=== PATIENT | female | born 1940 ===

== ENCOUNTER 2017-02-14 15:47 | Observation (INO) | payer MEDICARE, MEDICAID ==
--- NOTE | 2017-02-14 16:05 | ED PDOC ---
HPI:STROKE - Time Time: 16:05 - Historian Historian: Patient, EMS - Onset Onset: Hours (prior to arrival) - Notes: Notes:: Naima Hook is a 77 year old female with a past medical history of hypertension, rheumatoid arthritis, gastritis, gastrointestinal ulcer, and previous CVA brought to the ED via EMS for a possible CVA. EMS states they found the patient sitting in the lobby after she walked herself downstairs. The patient was complaining of headache (unknown time of when headache started) and dizziness. EMS found the patient to have slurred speech and facial droop. The patient states her facial droop and current aphasia is from a previous stroke. PMD: Non CPH Provider NIHSS Stroke Scale - Date/Time Evaluation Performed Date Performed: 02/14/17 Time Performed: 15:50 When Was NIHSS Performed: Code Stroke - How Severe is the Stroke Level of Consciousness: 0=Alert LOC to Questions: 0=Both comments correct LOC to commands: 0=Obeys both correctly Best Gaze: 0=Normal Visual: 0=No visual loss Facial: 1=Minor asymmetry Motor Arm - Left: 0=No drift Motor Arm - Right: 0=No drift Motor Leg - Left: 0=No drift Motor Leg - Right: 0=No drift Limb Ataxia: 1=Present Upper or Lower Sensory: 0=Normal Best Language: 1=Mild to moderate aphasia Dysarthia: 1=Mild to moderate slurring Extinction & Inattention (Neglect): 0=Normal, no object Score: 4 rTPA Inclusion/Exclusion - Refusal of Treatment Patient Refused Treatment: No - Inclusion Criteria for Altepase Patient is 18 years or Older: Yes The Clinical Diagnosis of Ischemic Stroke That is Causing a Potentially Disabling Neurological Deficit: Yes Time of Onset is Well Established to be Less Than 270 Minute Before Treatment Would Begin: No Risk/Benefit Discussed With Patient/Family Member Present: No Past Medical History Reviewed: Historical Data, Nursing Documentation, Vital Signs Vital Signs: Last Vital Signs Temp 97.3 F L 02/14/17 15:48 Pulse 64 02/14/17 15:48 Resp 19 02/14/17 15:48 BP 175/68 H 02/14/17 15:48 Pulse Ox 96 02/14/17 15:48 - Medical History PMH: Gastritis, Gastrointestinal Ulcer, HTN, Rheumatoid Arthritis Denies: Chronic Kidney Disease - Family History Family History: States: No Known Family Hx - Social History Current smoker - smoking cessation education provided: No Ex-Smoker (has not smoked in the last 12 months): Yes Alcohol: None Drugs: Denies - Immunization History Hx Tetanus Toxoid Vaccination: No Hx Influenza Vaccination: No Hx Pneumococcal Vaccination: No - Home Medications Home Medications: Ambulatory Orders Medication Instructions Recorded amLODIPine [Norvasc] 5 mg PO DAILY #30 tab 06/01/15 Docusate [Colace] 100 mg PO DAILY #30 cap 08/03/15 Magnesium Citrate [Citrate of Mag] 300 ml PO ONCE PRN #1 bottle 08/03/15 - Allergies Allergies/Adverse Reactions: Allergies Allergy/AdvReac Type Severity Reaction Status Date / Time No Known Allergies Allergy Verified 08/03/15 17:48 Review of Systems ROS Statement: Except As Marked, All Systems Reviewed And Found Negative Neurological: Positive for: Change in Speech (slurred speech), Headache, Dizziness, Other (facial droop) Physical Exam - Reviewed Nursing Documentation Reviewed: Yes Vital Signs Reviewed: Yes - Physical Exam Appears: Positive for: Non-toxic, No Acute Distress Head Exam: Positive for: ATRAUMATIC, NORMOCEPHALIC Skin: Positive for: Normal Color, Warm, Dry Eye Exam: Positive for: Normal appearance, EOMI ENT: Positive for: Normal ENT Inspection Neck: Positive for: Normal, Painless ROM, Supple Cardiovascular/Chest: Positive for: Regular Rate, Rhythm, Chest Non Tender Respiratory: Positive for: Normal Breath Sounds. Negative for: Respiratory Distress Gastrointestinal/Abdominal: Positive for: Normal Exam, Soft. Negative for: Tenderness Back: Positive for: Normal Inspection Extremity: Positive for: Normal ROM. Negative for: Deformity Neurologic/Psych: Positive for: Alert, Oriented (x2), Aphasia (from previous CVA ), Facial Droop (mild right facial droop), Other (right side: finger to nose - abnormal; heel to diaz - normal) - Laboratory Results Result Diagrams: 02/14/17 15:55 02/14/17 15:55 - ECG O2 Sat by Pulse Oximetry: 96 (RA) Pulse Ox Interpretation: Normal - Physician Consult Information Time Consulting Physican Contacted: 17:38 Physician Contacted: Cedrick Au Outcome Of Conversation: Recommends MRI brain without contrast, Plavix, ASA, statin and beta bethany to keep MAP 90-100. - Critical Care Total Time (In Min): 45 Medical Decision Making Medical Decision Making: Time: 16:05 Impression: Possible CVA Plan: * Type and Screen * ED EKG * CMP * Hemoglobin A1C * Lipid Panel * Troponin I * CBC (with differential) * Partial Thromboplastin Time * Prothrombin Time * ED obtain labs * Glucose, Blood, POC * Nursing Swallow Screen * Vital Signs Q15min * Swallow Evaluation & Treat Routine * CT Head (Code Stroke) * [RAD] Chest Portable * Reevaluation Reassess: --16:07 FINDINGS:CT HEAD WITHOUT CONTRAST. HEMORRHAGE: No intracranial hemorrhage. BRAIN: Diffuse expansion of the ventriculosulcal and cisternal spaces is appreciated with white matter lucency compatible with diffuse cerebral atrophy and chronic microangiopathy. No mass-effect is identified and there is no suspicious extra- axial collection identified. Chronic lacunes are seen the bilateral cerebellar hemispheres as well as posterior the posterior bilateral basal ganglia and left external capsule. VENTRICLES: Unremarkable. No hydrocephalus. CALVARIUM: Unremarkable. PARANASAL SINUSES: Unremarkable as visualized. No significant inflammatory changes. MASTOID AIR CELLS: Unremarkable as visualized. No inflammatory changes. OTHER FINDINGS: None. IMPRESSION: No definite acute intracranial findings by standard CT criteria. Follow-up CT or MRI are available if clinically warranted. Age-related degenerative change identified as well as bilateral chronic lacunes as discussed above, including bilateral basal ganglia, left external capsule and bilateral cerebellar hemispheres. --16:10 FINDINGS: Chest X-ray LUNGS: No active pulmonary disease. PLEURA: No significant pleural effusion identified, no pneumothorax apparent. CARDIOVASCULAR: Mild cardiomegaly. No definite pulmonary vascular derangement. OSSEOUS STRUCTURES: No significant abnormalities. VISUALIZED UPPER ABDOMEN: Normal. OTHER FINDINGS: None. IMPRESSION: Mild cardiomegaly. No definite pulmonary vascular derangement identified. Scribe Attestation: Documented by Sheeba Campos, acting as a scribe for Edda Fontanez MD. Provider Scribe Attestation: All medical record entries made by the Scribe were at my direction and personally dictated by me. I have reviewed the chart and agree that the record accurately reflects my personal performance of the history, physical exam, medical decision making, and the department course for this patient. I have also personally directed, reviewed, and agree with the discharge instructions and disposition. Disposition - Disposition
[2017-02-14 16:06] LABS: BASO # 0.1 K/uL (0.0-0.2); BASO % 0.8 % (0.0-2.0); EOS # 0.2 K/uL (0.0-0.7); EOS % 1.6 % (0.0-4.0); HEMATOCRIT 44.4 % (34.0-47.0); LYMPH # 4.3 K/uL (1.0-4.3); LYMPH % 39.9 % (20.0-40.0); MEAN CELL VOLUME 87.7 fl (81.0-99.0); MEAN CORPUSCULAR HEMOGLOBIN 28.8 pg (27.0-31.0); MEAN CORPUSCULAR HGB CONC 32.9 g/dL (33.0-37.0); MEAN PLATELET VOLUME 7.2 fl (7.2-11.7); MONO # 0.8 K/uL (0.0-0.8); MONO % 7.9 % (0.0-10.0); NEUT # 5.4 K/uL (1.8-7.0); NEUT % 49.8 % (50.0-75.0); NRBC % 0.1 % (0.0-0.0); RED CELL DISTRIBUTION WIDTH 14.3 % (11.5-14.5); WHITE BLOOD COUNT 10.8 K/uL (4.8-10.8)
--- NOTE | 2017-02-14 16:09 | CT ---
PROCEDURE: CT HEAD WITHOUT CONTRAST. HISTORY: code stroke COMPARISON: None available. TECHNIQUE: Axial computed tomography images were obtained through the head/brain without intravenous contrast. Radiation dose: Total exam DLP = 778.97 mGy-cm. This CT exam was performed using one or more of the following dose reduction techniques: Automated exposure control, adjustment of the mA and/or kV according to patient size, and/or use of iterative reconstruction technique. FINDINGS: HEMORRHAGE: No intracranial hemorrhage. BRAIN: Diffuse expansion of the ventriculosulcal and cisternal spaces is appreciated with white matter lucency compatible with diffuse cerebral atrophy and chronic microangiopathy. No mass-effect is identified and there is no suspicious extra-axial collection identified. Chronic lacunes are seen the bilateral cerebellar hemispheres as well as posterior the posterior bilateral basal ganglia and left external capsule. VENTRICLES: Unremarkable. No hydrocephalus. CALVARIUM: Unremarkable. PARANASAL SINUSES: Unremarkable as visualized. No significant inflammatory changes. MASTOID AIR CELLS: Unremarkable as visualized. No inflammatory changes. OTHER FINDINGS: None. IMPRESSION: No definite acute intracranial findings by standard CT criteria. Follow-up CT or MRI are available if clinically warranted. Age-related degenerative change identified as well as bilateral chronic lacunes as discussed above, including bilateral basal ganglia, left external capsule and bilateral cerebellar hemispheres. Findings discussed with Dr. Fontanez 02/14/2017 4:03 p.m..
--- NOTE | 2017-02-14 16:15 | RAD ---
HISTORY: CVA COMPARISON: No prior. FINDINGS: LUNGS: No active pulmonary disease. PLEURA: No significant pleural effusion identified, no pneumothorax apparent. CARDIOVASCULAR: Mild cardiomegaly. No definite pulmonary vascular derangement. OSSEOUS STRUCTURES: No significant abnormalities. VISUALIZED UPPER ABDOMEN: Normal. OTHER FINDINGS: None. IMPRESSION: Mild cardiomegaly. No definite pulmonary vascular derangement identified.
[2017-02-14 16:17] LABS: ALB/GLOB RATIO 1.2 (1.0-2.1); ALKALINE PHOSPHATASE 79 U/L (38-126); ALT/SGPT 35 U/L (9-52); AST/SGOT 30 U/L (14-36); BILIRUBIN,TOTAL 0.7 mg/dl (0.2-1.3); BLOOD UREA NITROGEN 23 mg/dl (7-17); CALCIUM 8.9 mg/dL (8.4-10.2); CARBON DIOXIDE 26 mmol/L (22-30); CHLORIDE 108 mmol/L (98-107); CHOLESTEROL 176 mg/dL (0-199); GFR AFRICAN-AMERICAN > 60; GLUCOSE,RANDOM 100 mg/dL (65-105); POTASSIUM 3.8 MMOL/L (3.6-5.0); SODIUM 143 mmol/l (132-148); TOTAL PROTEIN 7.8 G/DL (6.3-8.2)
[2017-02-14 16:32] LABS: PARTIAL THROMBOPLASTIN TIME 29.5 Seconds (25.6-37.1)
[2017-02-14] MEDS ORDERED: Labetalol 5 mg/ml Inj 20ML IVP STA (17:32)
--- NOTE | 2017-02-14 17:39 | CP.PCM.HP ---
History of Present Illness - History of Present Illness History of Present Illness: 77 y/o female with PMH Dyslipidemia, HTN, prior CVA , gastritis brought to ER for evaluation. As per patient she has not been feeling well for the past 2 days. She states that her friend brought 2 bottles of heavy alcohol ( marisol dobbins) and she drank almost half a bottle. Afterwards she started feeling poorly , her whole body , stomach was hurting , her head started feeling heavy , dizzy and big.She denies any nausea or vomiting. Today as per room mate she had breakfast and was still complaining of epigastric discomfort. She went down to the loby of her apartment and told the information security specialist to call EMS. She was found sitting , complaining of GA and dizziness . patient noticed to have slurred speech and right facial droop. As per patient she had prior stroke and has some facial droop and slurred speech since then. Code stroke was called in ER .NIHSS stroke scale was 3. CT head showed no acute pathology. Neurology was consulted and patient to be admitted to telemetry for monitoring for possible stroke Denies any chest pain , SOB , palpitations, PND , orthopnea, urinary symptoms. Complains of constipation and tarry stools. Allergies: NKDA PMH: Dyslipidemia, HTN Medications; Surgery : none Family history ; Denies Social history : lives with a friend in [facility], denies smoking , social ETOH , denies any drugs,does not work , has 2 children a girl in [place] and a boy in [place] , wants her friend Antonino to be the surrogate decision maker for her ROS ; 14 point review of system negative except above PMD ; Dr Beal Code status; Full Surrogate decision maker : Friend Antonino Borrero Present on Admission - Present on Admission Any Indicators Present on Admission: No Review of Systems - Review of Systems All systems: reviewed and no additional remarkable complaints except Past Patient History - Infectious Disease Hx of Infectious Diseases: None - Tetanus Immunizations Tetanus Immunization: Unknown - Past Medical History & Family History Past Medical History?: Yes Past Family History: Reviewed and not pertinent - Past Social History Smoking Status: Never Smoked Chewing Tobacco Use: No Cigar Use: No Alcohol: None Drugs: Denies Home Situation {Lives}: Friends Domestic Violence: Negative - CARDIAC Hx Hypertension: Yes - PULMONARY Hx Respiratory Disorders: No - NEUROLOGICAL HX Cerebrovascular Accident: Yes Hx Transient Ischemic Attacks (TIA): Yes - HEENT Hx HEENT Problems: No - RENAL Hx Chronic Kidney Disease: No - ENDOCRINE/METABOLIC Hx Endocrine Disorders: No - HEMATOLOGICAL/ONCOLOGICAL Hx Blood Disorders: No - INTEGUMENTARY Hx Dermatological Problems: No Hx Basil Cell: No Hx Abraham: No - MUSCULOSKELETAL/RHEUMATOLOGICAL Hx Rheumatoid Arthritis: Yes - GASTROINTESTINAL Hx Gastritis: Yes - PSYCHIATRIC Hx Substance Use: No - SURGICAL HISTORY Hx Surgeries: No - ANESTHESIA Hx Anesthesia: No (Pt denies) Hx Anesthesia Reactions: No Hx Malignant Hyperthermia: No Meds Allergies/Adverse Reactions: Allergies Allergy/AdvReac Type Severity Reaction Status Date / Time No Known Allergies Allergy Verified 08/03/15 17:48 Physical Exam - Constitutional Appears: Non-toxic, No Acute Distress - Head Exam Head Exam: ATRAUMATIC, NORMAL INSPECTION, NORMOCEPHALIC - Eye Exam Eye Exam: EOMI, Normal appearance, PERRL Pupil Exam: NORMAL ACCOMODATION - ENT Exam ENT Exam: Mucous Membranes Moist, Normal Exam - Neck Exam Neck exam: Positive for: Normal Inspection - Respiratory Exam Respiratory Exam: Clear to Auscultation Bilateral, NORMAL BREATHING PATTERN. absent: Rales, Rhonchi, Wheezes - Cardiovascular Exam Cardiovascular Exam: REGULAR RHYTHM, RRR, +S1, +S2. absent: JVD - GI/Abdominal Exam GI & Abdominal Exam: Normal Bowel Sounds, Soft. absent: Distended, Guarding, Rebound, Tenderness - Rectal Exam Rectal Exam: Deferred - Extremities Exam Extremities exam: Positive for: normal capillary refill, normal inspection, pedal pulses present. Negative for: calf tenderness, pedal edema - Back Exam Back exam: NORMAL INSPECTION - Neurological Exam Neurological exam: Alert, Oriented x3 Additional comments: right facial droop slurred speech - Psychiatric Exam Psychiatric exam: Normal Affect, Normal Mood - Skin Skin Exam: Dry, Intact, Normal Color, Warm Results - Vital Signs Recent Vital Signs: Last Vital Signs Temp 97 F L 02/14/17 16:05 Pulse 59 L 02/14/17 16:45 Resp 16 02/14/17 16:45 BP 150/75 02/14/17 16:45 Pulse Ox 97 02/14/17 16:45 - Labs Result Diagrams: 02/14/17 15:55 02/14/17 15:55 Labs: Laboratory Results - last 24 hr 02/14/17 02/14/17 02/14/17 15:55 15:55 15:55 WBC 10.8 RBC 5.07 Hgb 14.6 Hct 44.4 MCV 87.7 MCH 28.8 MCHC 32.9 L RDW 14.3 Plt Count 219 MPV 7.2 Neut % (Auto) 49.8 L Lymph % (Auto) 39.9 [place] % (Auto) 7.9 Eos % (Auto) 1.6 Baso % (Auto) 0.8 Neut # 5.4 Lymph # 4.3 [place] # 0.8 Eos # 0.2 Baso # 0.1 PT 11.6 INR 1.0 APTT 29.5 Sodium 143 Potassium 3.8 Chloride 108 H Carbon Dioxide 26 Anion Gap 13 BUN 23 H Creatinine 1.0 Est GFR ( Amer) > 60 Est GFR (Non-Af Amer) 53 Random Glucose 100 Calcium 8.9 Total Bilirubin 0.7 AST 30 ALT 35 Alkaline Phosphatase 79 Troponin I < 0.0120 Total Protein 7.8 Albumin 4.2 Globulin 3.6 Albumin/Globulin Ratio 1.2 Triglycerides 142 Cholesterol 176 LDL Cholesterol Direct 98 HDL Cholesterol 55 BBK History Checked 02/14/17 15:55 WBC RBC Hgb Hct MCV MCH MCHC RDW Plt Count MPV Neut % (Auto) Lymph % (Auto) [place] % (Auto) Eos % (Auto) Baso % (Auto) Neut # Lymph # [place] # Eos # Baso # PT INR APTT Sodium Potassium Chloride Carbon Dioxide Anion Gap BUN Creatinine Est GFR ( Amer) Est GFR (Non-Af Amer) Random Glucose Calcium Total Bilirubin AST ALT Alkaline Phosphatase Troponin I Total Protein Albumin Globulin Albumin/Globulin Ratio Triglycerides Cholesterol LDL Cholesterol Direct HDL Cholesterol BBK History Checked Patient has bt - Imaging and Cardiology CT scan - head Additional comment: No acute pathology Age-related degenerative changes identified as well as bilateral chronic lacunes as discussed above, including bilateral basal ganglia, left external capsule and bilateral cerebellar hemispheres. Chest x-ray Additional comment: no acute pathology Assessment & Plan - Assessment and Plan (Free Text) Assessment: 77 y/o female with PMH Dyslipidemia, HTN, prior CVA , gastritis brought to ER for evaluation. As per patient she has not been feeling well for the past 2 days. She states that her friend brought 2 bottles of heavy alcohol ( acqutiera narayanane) and she drank almost half a bottle. Afterwards she started feeling poorly , her whole body , stomach was hurting , her head started feeling heavy , dizzy and big.She denies any nausea or vomiting. Today as per room mate she had breakfast and was still complaining of epigastric discomfort. She went down to the loby of her apartment and told the information security specialist to call EMS. She was found sitting , complaining of GA and dizziness . patient noticed to have slurred speech and right facial droop. As per patient she had prior stroke and has some facial droop and slurred speech since then. Code stroke was called in ER .NIHSS stroke scale was 3. CT head showed no acute pathology. Neurology was consulted and patient to be admitted to telemetry for monitoring for possible stroke Denies any chest pain , SOB , palpitations, PND , orthopnea, urinary symptoms. Complains of constipation and tarry stools. 1. Suspected new CVA CT head showed no acute pathology Patient has right facial droop and and slurred speech and is not clear if these findings are residual deficits from prior stroke or not will admit patient to telemetry neuro checks q4 hour start ASA, statin Neurology consulted Will order MRI head , carotid doppler , Echo , tele monitoring PT/ OT/speech eval 2.Recent ETOh use Check ETOH levels no history of abuse Zofran PRN for nausea Hydration Tylenol PRN for GALEANO 3.HTN Controlled continue BP meds 4. Anxiety on Xanax 1 mg PO daily for a long time Can resume PRN to avoid withdrawal 5. Constipation start colace 6. DVt prophylaxis SCD Lovenox
[2017-02-15 05:51] LABS: BASO # 0.1 K/uL (0.0-0.2); BASO % 0.6 % (0.0-2.0); EOS # 0.3 K/uL (0.0-0.7); EOS % 3.5 % (0.0-4.0); HEMATOCRIT 43.7 % (34.0-47.0); LYMPH # 3.7 K/uL (1.0-4.3); LYMPH % 38.8 % (20.0-40.0); MEAN CELL VOLUME 88.3 fl (81.0-99.0); MEAN CORPUSCULAR HEMOGLOBIN 28.7 pg (27.0-31.0); MEAN CORPUSCULAR HGB CONC 32.5 g/dL (33.0-37.0); MEAN PLATELET VOLUME 7.4 fl (7.2-11.7); MONO # 0.8 K/uL (0.0-0.8); MONO % 8.1 % (0.0-10.0); NEUT # 4.6 K/uL (1.8-7.0); NRBC % 0.1 % (0.0-0.0); RED CELL DISTRIBUTION WIDTH 14.1 % (11.5-14.5); WHITE BLOOD COUNT 9.4 K/uL (4.8-10.8)
[2017-02-15 06:21] LABS: BLOOD UREA NITROGEN 18 mg/dl (7-17); CALCIUM 8.7 mg/dL (8.4-10.2); CARBON DIOXIDE 25 mmol/L (22-30); CHLORIDE 109 mmol/L (98-107); GFR AFRICAN-AMERICAN > 60; GLUCOSE,RANDOM 101 mg/dL (65-105); POTASSIUM 3.9 MMOL/L (3.6-5.0); SODIUM 142 mmol/l (132-148)
[2017-02-15 08:44] VITALS: RESP 20
[2017-02-15] MEDS ORDERED: Pantoprazole 40 mg EC Tab PO SCH (09:00)
[2017-02-15] MEDS ORDERED: Enoxaparin 40 mg Syringe SC SCH (09:00)
--- NOTE | 2017-02-15 11:50 | MRI ---
PROCEDURE: MRI brain dated 02/15/2017. HISTORY: Right facial droop. Dysphagia. COMPARISON: Comparison made with CT scan of the brain dated 02/14/2017 TECHNIQUE: Multiplanar, multisequence MR images of the brain were obtained without intravenous contrast enhancement. FINDINGS: HEMORRHAGE: No acute parenchymal, subarachnoid or extra-axial hemorrhage. No evidence of hemosiderin deposition identified on gradient echo weighted sequence. DWI: No evidence of an acute or early subacute infarction seen on diffusion imaging. . BRAIN PARENCHYMA: Mild diffuse/ confluent chronic white matter ischemic changes seen extending peripherally into the deep and subcortical white matter both cerebral hemispheres. Additionally, there are multiple more discrete round and elliptical shaped chronic appearing infarct changes seen scattered about the deep and subcortical white matter as well as both basal nuclei. Additionally, there are scattered chronic appearing bilateral cerebellar lacunar small infarcts as well. None of these changes exhibit restricted diffusion. Note also made of the relatively exuberant dilated perivascular spaces both basal nuclei. Note that such changes have been seen and described in cases of vascular dementia therefore clinical correlation recommended. Moderate generalized volume loss. VENTRICLES: No obstructive hydrocephalus. . Apparent cavum velum interpositum. . CRANIUM: Calvarium appears intact. ORBITS: Changes of bilateral cataract surgery again noted. PARANASAL SINUSES/MASTOIDS: Re- demonstrated is hypoplastic frontal sinuses. The paranasal sinuses otherwise well-developed and currently well-aerated. VASCULAR SYSTEM: Shawn visualized major vascular flow voids at skull base patent. OTHER FINDINGS: None. IMPRESSION: No acute intracranial hemorrhage. Chronic white matter, basal nuclei and cerebellar ischemic changes. Moderate generalized volume loss.
--- NOTE | 2017-02-15 12:28 | CP.PCM.DIS ---
Provider - Provider Date of Admission: 02/14/17 17:33 Attending physician: Mark Garcia MD Primary care physician: Dr. Beal Consults: Neurology consult Time Spent in preparation of Discharge (in minutes): 20 Hospital Course - Lab Results Lab Results: Most Recent Lab Values WBC 9.4 K/uL (4.8-10.8) 02/15/17 04:20 RBC 4.95 Mil/uL (3.80-5.20) 02/15/17 04:20 Hgb 14.2 g/dL (12.0-16.0) 02/15/17 04:20 Hct 43.7 % (34.0-47.0) 02/15/17 04:20 MCV 88.3 fl (81.0-99.0) 02/15/17 04:20 MCH 28.7 pg (27.0-31.0) 02/15/17 04:20 MCHC 32.5 g/dL (33.0-37.0) L 02/15/17 04:20 RDW 14.1 % (11.5-14.5) 02/15/17 04:20 Plt Count 211 K/uL (130-400) 02/15/17 04:20 MPV 7.4 fl (7.2-11.7) 02/15/17 04:20 Neut % (Auto) 49.0 % (50.0-75.0) L 02/15/17 04:20 Lymph % (Auto) 38.8 % (20.0-40.0) 02/15/17 04:20 Lipscomb % (Auto) 8.1 % (0.0-10.0) 02/15/17 04:20 Eos % (Auto) 3.5 % (0.0-4.0) 02/15/17 04:20 Baso % (Auto) 0.6 % (0.0-2.0) 02/15/17 04:20 Neut # 4.6 K/uL (1.8-7.0) 02/15/17 04:20 Lymph # 3.7 K/uL (1.0-4.3) 02/15/17 04:20 Lipscomb # 0.8 K/uL (0.0-0.8) 02/15/17 04:20 Eos # 0.3 K/uL (0.0-0.7) 02/15/17 04:20 Baso # 0.1 K/uL (0.0-0.2) 02/15/17 04:20 PT 11.6 Seconds (9.8-13.1) 02/14/17 15:55 INR 1.0 (0.9-1.2) 02/14/17 15:55 APTT 29.5 Seconds (25.6-37.1) 02/14/17 15:55 Sodium 142 mmol/l (132-148) 02/15/17 04:20 Potassium 3.9 MMOL/L (3.6-5.0) 02/15/17 04:20 Chloride 109 mmol/L (98-107) H 02/15/17 04:20 Carbon Dioxide 25 mmol/L (22-30) 02/15/17 04:20 Anion Gap 12 (10-20) 02/15/17 04:20 BUN 18 mg/dl (7-17) H 02/15/17 04:20 Creatinine 0.8 mg/dl (0.7-1.2) 02/15/17 04:20 Est GFR ( Amer) > 60 02/15/17 04:20 Est GFR (Non-Af Amer) > 60 02/15/17 04:20 Random Glucose 101 mg/dL (65-105) 02/15/17 04:20 Hemoglobin A1c 5.6 % (4.2-6.5) 02/14/17 15:55 Calcium 8.7 mg/dL (8.4-10.2) 02/15/17 04:20 Total Bilirubin 0.7 mg/dl (0.2-1.3) 02/14/17 15:55 AST 30 U/L (14-36) 02/14/17 15:55 ALT 35 U/L (9-52) 02/14/17 15:55 Alkaline Phosphatase 79 U/L (38-126) 02/14/17 15:55 Troponin I < 0.0120 ng/mL (0.00-0.120) 02/14/17 15:55 Total Protein 7.8 G/DL (6.3-8.2) 02/14/17 15:55 Albumin 4.2 g/dL (3.5-5.0) 02/14/17 15:55 Globulin 3.6 gm/dL (2.2-3.9) 02/14/17 15:55 Albumin/Globulin Ratio 1.2 (1.0-2.1) 02/14/17 15:55 Triglycerides 142 mg/DL (0-149) 02/14/17 15:55 Cholesterol 176 mg/dL (0-199) 02/14/17 15:55 LDL Cholesterol Direct 98 mg/dL (0-129) 02/14/17 15:55 HDL Cholesterol 55 MG/DL (30-70) 02/14/17 15:55 Urine Opiates Screen Negative (NEGATIVE) 02/14/17 22:15 Urine Methadone Screen Negative (NEGATIVE) 02/14/17 22:15 Ur Barbiturates Screen Negative (NEGATIVE) 02/14/17 22:15 Ur Phencyclidine Scrn Negative (NEGATIVE) 02/14/17 22:15 Ur Amphetamines Screen Negative (NEGATIVE) 02/14/17 22:15 U Benzodiazepines Scrn Positive (NEGATIVE) H 02/14/17 22:15 U Oth Cocaine Metabols Positive (NEGATIVE) H 02/14/17 22:15 U Cannabinoids Screen Negative (NEGATIVE) 02/14/17 22:15 Alcohol, Quantitative < 10 mg/dl (0-10) 02/14/17 19:22 Blood Type B POSITIVE 02/14/17 15:55 Antibody Screen Negative 02/14/17 15:55 BBK History Checked Patient has bt 02/14/17 15:55 - Hospital Course Hospital Course: 77 y/o female with PMH Dyslipidemia, HTN, prior CVA , gastritis brought to ER for evaluation. As per patient she has not been feeling well for the past 2 days. She states that her friend brought 2 bottles of heavy alcohol ( marisol dobbins) and she drank almost half a bottle. Afterwards she started feeling poorly , her whole body , stomach was hurting , her head started feeling heavy , dizzy and big.She denies any nausea or vomiting. Today as per room mate she had breakfast and was still complaining of epigastric discomfort. She went down to the [place]y of her apartment and told the security checker to call EMS. She was found sitting , complaining of GALEANO and dizziness . She was noticed to have slurred speech and right facial droop. As per patient she had a prior stroke and has some facial droop and slurred speech since then. Code stroke was called in ER .NIHSS stroke scale was 3. CT head showed no acute pathology. Neurology was consulted and patien admitted to telemetry for monitoring for possible stroke Denies any chest pain , SOB , palpitations, PND , orthopnea, urinary symptoms. Complains of constipation and tarry stools. Her drug screen reported positive for cocaine and benzo and patient admitted to using drugs. MRI of the brain showed no acute pathology so stroke was ruled out . She is hemodyankiaclly stable,a febrile . Counselled patient on ETOH and drug abuse. Will discharge home 1. Suspected new CVA-- ruled out CT head showed no acute pathology Patient has right facial droop and and slurred speech and was not clear in admission if these findings are residual deficits from prior stroke or not Admitted to telemetry for observation MRI showed no acute pathology Remained hemodynamically satble, afebrile with no new neuro deficits Drug screen positive for cocaine and Benzo. counselled patient on drug and ETOH use start ASA, statin Neurology consulted will d/c patient home 2.Recent ETOh use Check ETOH levels no history of abuse Zofran PRN for nausea Hydration Tylenol PRN for GALEANO 3.HTN Controlled continue BP meds 4. Anxiety on Xanax 1 mg PO daily for a long time Can resume PRN to avoid withdrawal 5. Constipation started colace 6. Drug abuse drug screen positive for cocaine Counselled patient on drug abuse 7. DVt prophylaxis SCD Lovenox Discharge Exam - Head Exam Head Exam: ATRAUMATIC, NORMAL INSPECTION, NORMOCEPHALIC - Eye Exam Eye Exam: Normal appearance, PERRL Pupil Exam: NORMAL ACCOMODATION - ENT Exam ENT Exam: Mucous Membranes Moist, Normal Exam - Neck Exam Neck exam: Full Rom, Normal Inspection - Respiratory Exam Respiratory Exam: Clear to PA & Lateral, NORMAL BREATHING PATTERN. absent: Rales, Rhonchi, Wheezes, Respiratory Distress - Cardiovascular Exam Cardiovascular Exam: REGULAR RHYTHM, RRR, +S1, +S2. absent: JVD - GI/Abdominal Exam GI & Abdominal Exam: Normal Bowel Sounds, Soft. absent: Distended, Guarding, Rebound, Tenderness - Rectal Exam Rectal Exam: Deferred - Extremities Exam Extremities exam: normal capillary refill, normal inspection, pedal pulses present - Back Exam Back exam: NORMAL INSPECTION - Neurological Exam Neurological exam: Alert, CN II-XII Intact, Oriented x3, Reflexes Normal Additional comments: right facial droop - Psychiatric Exam Psychiatric exam: Normal Affect, Normal Mood - Skin Skin Exam: Dry, Intact, Normal Color, Warm Discharge Plan - Discharge Medications Prescriptions: Aspirin [Aspirin Chewable] 81 mg PO DAILY #30 chew Atorvastatin [Lipitor] 40 mg PO HS #30 tab Docusate [Colace] 100 mg PO BID PRN #60 cap PRN Reason: Constipation - Follow Up Plan Condition: STABLE Disposition: HOME/ ROUTINE Patient education suggested?: Yes Instructions: Cocaine Abuse (DC) Referrals: Jerman Beal MD [Family Provider] -
[2017-02-15] MEDS ORDERED: Sodium Chloride 0.9% 1,000 ML IV SCH (13:00)
[2017-02-15 13:04] VITALS: BP 168/81; PULSE 66; TEMP 97.4; O2SAT 96
--- NOTE | 2017-02-15 13:10 | US ---
PROCEDURE: Duplex ultrasound of the carotid and vertebral arteries. HISTORY: CVA COMPARISON: None available. TECHNIQUE: Grayscale and duplex Doppler evaluation of the cervical carotid and vertebral arteries were performed. The common carotid, carotid bifurcations and cervical ICA and proximal ECA were evaluated. The vertebral arteries were evaluated for gross patency and direction. FINDINGS: RIGHT CAROTID ARTERIES: Common Carotid Artery: Normal. Maximal flow velocity of 52.2 cm/s. Carotid Bifurcation: Normal. Internal Carotid Artery:Intimal thickening. Maximal flow velocity of 48.9 cm/s. External Carotid Artery (proximal branches): Normal. Maximal flow velocity of 74.4 cm/s. ICA/CCA Ratio: 0.9 LEFT CAROTID ARTERIES: Common Carotid Artery: Normal. Maximal flow velocity of 67.0 cm/s. Carotid Bifurcation: Normal. Internal Carotid Artery:Intimal thickening. Maximal flow velocity of 65.8 cm/s. External Carotid Artery (proximal branches): Normal. Maximal flow velocity of 105.8 cm/s. ICA/CCA Ratio: 1.0 VERTEBRAL ARTERIES: Right Vertebral Artery: Patent. Antegrade flow. Left Vertebral Artery: Patent. Antegrade flow. OTHER FINDINGS: None. IMPRESSION: Per NASCET criteria, less than 50 percent stenosis of the internal carotid arteries bilaterally.
--- NOTE | 2017-02-15 18:52 | CARD ---
APPROVED REPORT EXAM: Two-dimensional and M-mode echocardiogram with Doppler and color Doppler. Other Information Quality : GoodRhythm : NSR INDICATION CVA/TIA 2D DIMENSIONS IVSd1.27 (0.7-1.1cm)LVDd3.52 (3.9-5.9cm) LVOT Diameter1.44 (1.8-2.4cm)PWd0.93 (0.7-1.1cm) IVSs1.13 (0.8-1.2cm)LVDs2.92 (2.5-4.0cm) FS (%) 17.2 %PWs1.34 (0.8-1.2cm) M-Mode DIMENSIONS Left Atrium (MM)4.47 (2.5-4.0cm)IVSd0.79 (0.7-1.1cm) Aortic Root3.03 (2.2-3.7cm)LVDd4.65 (4.0-5.6cm) Aortic Cusp Exc.1.59 (1.5-2.0cm)PWd1.00 (0.7-1.1cm) IVSs1.76 cmFS (%) 56 % LVDs2.03 (2.0-3.8cm)PWs1.62 cm Mitral Valve MV E Kwdicryr00.0cm/sMV DECEL [id number] A Vdvedhvk290.8cm/s MV ENF797tyU/A ratio0.6MVA (PHT)2.20cm2 TDI Lateral E' Peak V6.68cm/sMedial E' Peak V4.64cm/sE/Lateral E'10.2 E/Medial E'14.7 LEFT VENTRICLE The left ventricle is normal size. There is normal left ventricular wall thickness. The left ventricular function is normal. The left ventricular ejection fraction is 60-65% There is normal LV segmental wall motion. Transmitral Doppler flow pattern is Grade I-abnormal relaxation pattern. No left ventricle thrombus noted on this study. There is no ventricular septal defect visualized. There is no left ventricular aneurysm. There is no mass noted in the left ventricle. RIGHT VENTRICLE The right ventricle is normal size. There is normal right ventricular wall thickness. The right ventricular systolic function is normal. ATRIA The left atrium size is normal. The right atrium size is normal. There is an atrial septal anneurysm and small PFO noted with left to right shunting present. AORTIC VALVE The aortic valve is mildly to moderately sclerotic. There is mild aortic regurgitation. There is no aortic valvular stenosis. There is no aortic valvular vegetation. MITRAL VALVE Mitral annular calcification is mild to moderate. The mitral valve leaflets are calcified. There is no evidence of mitral valve prolapse. There is no mitral valve stenosis. There is no mitral valve regurgitation noted. TRICUSPID VALVE The tricuspid valve is normal in structure. There is no tricuspid valve regurgitation noted. There is no tricuspid valve prolapse or vegetation. There is no tricuspid valve stenosis. PULMONIC VALVE The pulmonary valve is normal in structure. There is no pulmonic valvular regurgitation. There is no pulmonic valvular stenosis. GREAT VESSELS The aortic root is normal in size. The ascending aorta is normal in size. The IVC is normal in size and collapses >50% with inspiration. PERICARDIAL EFFUSION The pericardium appears normal. There is no pleural effusion. <Conclusion> Normal LV systolic function Aortic Valve Sclerosis Mild Aortic Insufficiency Mitral Annular Calcification Calcified Mitral Leafltes Intra-atrial septal annuerysm with small PF( left to right shunting)
== END 2017-02-15 13:46 | disposition home or self-care (01) ==
LOC: H.ER 15:47 → H.ERHOLD 17:33 → INTOOBSV 17:33 → H.TEL 21:19
PROVIDERS: ADMIT Hospitalist; ATTEND Hospitalist
DX: R29.810 Facial weakness (principal); R47.81 Slurred speech; I10 Essential (primary) hypertension; F41.9 Anxiety disorder, unspecified; K59.00 Constipation, unspecified; E78.5 Hyperlipidemia, unspecified; Z86.73 Personal history of transient ischemic attack (TIA), and cerebral infarction without residual deficits; K29.70 Gastritis, unspecified, without bleeding; M06.9 Rheumatoid arthritis, unspecified; Z87.891 Personal history of nicotine dependence; F14.10 Cocaine abuse, uncomplicated
CPT/HCPCS: 36415; 70450; 70551; 71010; 80048; 80053; 80061; 83036; 84484; 85025; 85610; 85730; 86850; 86900; 92526; 92610; 93306; 93880; 99285; G0378; G0480; G8996; G8997; G8998; J1650

== ENCOUNTER 2017-06-01 17:12 | Emergency (ER) | payer OTHER ==
[2017-06-01 17:30] VITALS: BP 139/73; PULSE 63; RESP 18; TEMP 97.3; O2SAT 96
[2017-06-01] MEDS ORDERED: Morphine 4 MG/ML VIAL IV ONE (17:58)
[2017-06-01] MEDS ORDERED: Sodium Chloride 0.9% 1,000 ML IV STA (17:58)
[2017-06-01] MEDS ORDERED: Iohexol 240 (50 ml) PO ONE (17:58)
--- NOTE | 2017-06-01 17:59 | ED PDOC ---
HPI: Abdomen Time Seen by Provider: 06/01/17 17:42 Chief Complaint (Nursing): Abdominal Pain Chief Complaint (Provider): Abd pain History Per: Patient History/Exam Limitations: no limitations Onset/Duration Of Symptoms: Days (3) Current Symptoms Are (Timing): Still Present Additional Complaint(s): Pt. with upper abd pain for 3 days, constant. Pt also with no stool for 3 days. No chest pain, dyspnea, weakness, headaches, dizziness, nausea, vomit, diarrhea. No back pain. Past Medical History Vital Signs: Last Vital Signs Temp 97.3 F L 06/01/17 17:27 Pulse 63 06/01/17 17:27 Resp 18 06/01/17 17:27 BP 139/73 06/01/17 17:27 Pulse Ox 96 06/01/17 18:06 - Medical History PMH: Gastritis, Gastrointestinal Ulcer, HTN, Rheumatoid Arthritis, TIA Denies: HIV, Chronic Kidney Disease - Family History Family History: States: Unknown Family Hx - Living Arrangements Living Arrangements: With Family - Immunization History Hx Tetanus Toxoid Vaccination: No Hx Influenza Vaccination: No Hx Pneumococcal Vaccination: No - Home Medications Home Medications: Ambulatory Orders Medication Instructions Recorded amLODIPine [Norvasc] 5 mg PO DAILY #30 tab 06/01/15 Magnesium Citrate [Citrate of Mag] 300 ml PO ONCE PRN #1 bottle 08/03/15 ALPRAZolam [Xanax] 1 mg PO HS PRN 02/14/17 Aspirin [Aspirin Chewable] 81 mg PO DAILY #30 chew 02/15/17 Atorvastatin [Lipitor] 40 mg PO HS #30 tab 02/15/17 Docusate [Colace] 100 mg PO BID PRN #60 cap 02/15/17 - Allergies Allergies/Adverse Reactions: Allergies Allergy/AdvReac Type Severity Reaction Status Date / Time No Known Allergies Allergy Verified 06/01/17 17:27 Review of Systems ROS Statement: Except As Marked, All Systems Reviewed And Found Negative Gastrointestinal: Positive for: Abdominal Pain, Constipation Physical Exam - Reviewed Nursing Documentation Reviewed: Yes Vital Signs Reviewed: Yes - Physical Exam Appears: Positive for: Non-toxic, No Acute Distress Head Exam: Positive for: ATRAUMATIC, NORMAL INSPECTION, NORMOCEPHALIC Skin: Positive for: Normal Color, Warm, DRY Eye Exam: Positive for: EOMI, Normal appearance, PERRL ENT: Positive for: Normal ENT Inspection Neck: Positive for: Normal, Painless ROM Cardiovascular/Chest: Positive for: Regular Rate, Rhythm Respiratory: Positive for: CNT, Normal Breath Sounds Gastrointestinal/Abdominal: Positive for: Soft, Tenderness (upper). Negative for: Distended, Guarding Back: Positive for: Normal Inspection. Negative for: L CVA Tenderness, R CVA Tenderness Extremity: Positive for: Normal ROM. Negative for: Tenderness, Pedal Edema Neurologic/Psych: Positive for: Alert, Oriented - ECG O2 Sat by Pulse Oximetry: 96 Pulse Ox Interpretation: Normal - Progress ED Course And Treament: 1820: Pt. not in room. Last seen AAOx3 and had capacity to make decisions. Pt. with when last seen. Not found in ER. Stable when last seen. Disposition - Clinical Impression Clinical Impression: Abdominal pain - Disposition Disposition: Left W/O Treatment Disposition Time: 18:23 Condition: FAIR
[2017-06-01] MEDS ORDERED: Morphine 4 MG/ML VIAL ONE (18:17)
--- NOTE | 2017-06-02 11:28 | CARD ---
APPROVED REPORT EKG Measurement Heart [id number] <Conclusion> Normal sinus rhythm Minimal voltage criteria for LVH, may be normal variant Borderline ECG
== END 2017-06-01 18:25 | disposition left against medical advice (07) ==
LOC: H.ER 17:12
DX: R10.9 Unspecified abdominal pain (principal); I10 Essential (primary) hypertension; M06.9 Rheumatoid arthritis, unspecified; Z79.82 Long term (current) use of aspirin; Z86.73 Personal history of transient ischemic attack (TIA), and cerebral infarction without residual deficits

== ENCOUNTER 2018-03-21 18:05 | Emergency (ER) | payer MEDICARE, MEDICAID ==
[2018-03-21 18:05] VITALS: BMI 29.2
--- NOTE | 2018-03-21 19:23 | ED PDOC ---
HPI: Abdomen Time Seen by Provider: 03/21/18 18:20 Chief Complaint (Nursing): Abdominal Pain Chief Complaint (Provider): Abdominal Pain History Per: Patient History/Exam Limitations: no limitations Onset/Duration Of Symptoms: Days (x 3) Current Symptoms Are (Timing): Still Present Location Of Pain/Discomfort: LLQ Quality Of Discomfort: "Pain" Associated Symptoms: Chills, Loss Of Appetite, Constipation (intermittent). denies: Nausea, Vomiting, Diarrhea Last Bowel Movement: Today Additional Complaint(s): 78 year old female with a history of HTN presents to the ED with abdominal pain localized in LLQ for the last three days associated with decreased appetite and chills. She reports intermittent constipation, but had a bowel movement earlier today. Pain is similar to previous episodes of pain from an ulcer. This episode is lasting longer than other episodes which usually resolved after a few hours. She has been seen at this ED and [facility] ED multiple times. Patient has been using a hot water bottle on her abdomen to help relieve the pain. Otherwise denies fever, nausea, vomiting, diarrhea and black or bloody stools. PMD: Dr. Jerman [place] Past Medical History Reviewed: Historical Data, Nursing Documentation, Vital Signs Vital Signs: Last Vital Signs Temp 99.0 F 03/21/18 18:36 Pulse 72 03/21/18 18:13 Resp 18 03/21/18 18:13 BP 134/95 H 03/21/18 18:13 Pulse Ox 98 03/21/18 18:13 - Medical History PMH: Arthritis, Gastritis, Gastrointestinal Ulcer, HTN, Rheumatoid Arthritis, TIA Denies: HIV, Chronic Kidney Disease - Surgical History Surgical History: No Surg Hx - Family History Family History: States: Unknown Family Hx - Immunization History Hx Tetanus Toxoid Vaccination: No Hx Influenza Vaccination: No Hx Pneumococcal Vaccination: No - Home Medications Home Medications: Ambulatory Orders Medication Instructions Recorded RX: Atorvastatin [Lipitor] 40 mg PO HS #30 tab 02/15/17 Tramadol HCl [Ultram] 50 mg PO Q6H PRN 01/20/18 Omeprazole Magnesium [Prilosec Otc] 20 mg PO DAILY #30 tcp 03/21/18 RX: Meclizine [Antivert] 12.5 mg PO Q8 PRN 03/21/18 RX: traZODone [Desyrel] 100 mg PO DAILY 03/21/18 - Allergies Allergies/Adverse Reactions: Allergies Allergy/AdvReac Type Severity Reaction Status Date / Time No Known Allergies Allergy Verified 10/25/17 10:34 Review of Systems ROS Statement: Except As Marked, All Systems Reviewed And Found Negative Constitutional: Positive for: Chills. Negative for: Fever Gastrointestinal: Positive for: Abdominal Pain (localized in LLQ), Constipation (intermittent; bowel movement today). Negative for: Nausea, Vomiting, Diarrhea, Melena, Hematochezia Physical Exam - Reviewed Nursing Documentation Reviewed: Yes Vital Signs Reviewed: Yes - Physical Exam Appears: Positive for: Non-toxic, No Acute Distress (tired appearing) Head Exam: Positive for: ATRAUMATIC, NORMAL INSPECTION, NORMOCEPHALIC Skin: Positive for: Normal Color, Warm, Dry, Rash (superficial patches of erythema to abdomen likely secondary dermatitis from hot water bottle.) Eye Exam: Positive for: EOMI, Normal appearance, PERRL ENT: Positive for: Other (tacky mucous membranes) Neck: Positive for: Painless ROM, Supple Cardiovascular/Chest: Positive for: Regular Rate, Rhythm. Negative for: Murmur Respiratory: Positive for: Normal Breath Sounds. Negative for: Respiratory Distress Gastrointestinal/Abdominal: Positive for: Soft. Negative for: Tenderness, Mass, Distended, Guarding, Rebound Back: Positive for: Normal Inspection. Negative for: Decreased ROM Extremity: Positive for: Normal ROM. Negative for: Deformity Lymphatic: Negative for: Adenopathy Neurologic/Psych: Positive for: Alert. Negative for: Motor/Sensory Deficits - Laboratory Results Result Diagrams: 03/21/18 19:05 03/21/18 19:05 - ECG O2 Sat by Pulse Oximetry: 98 (RA) Pulse Ox Interpretation: Normal Medical Decision Making Medical Decision Makin:40 Impression: abdominal pain with a benign exam Differential diagnoses include but are not limited to: Gastritis, recurrent ulcer, pancreatitis, enteritis, constipation Initial Plan: --EKG --CMP --CBC --UDS --Lactic acid --Lipase --PTT --PT --Obstructive series [RAD] --UA 19:42 --CT Abd Pelvis w/ contrast --Omnipaque [address] Abdomen/Pelvis FINDINGS: LUNG BASES: Mild atelectasis at the lung bases. Heart is again slightly enlarged. LIVER: There is fatty infiltration of liver. This was also present in 2016. A 1 cm hypodensity in the posterior right lobe of the liver does not meet criteria for a simple cyst and is therefore incompletely characterized. However, this is little change from 2016 which strongly suggest a benign etiology. GALLBLADDER AND BILE DUCTS: The gallbladder appears within normal limits. No radioopaque gallstones are seen. No biliary ductal dilatation is evident. PANCREAS: Unremarkable. SPLEEN: Unremarkable. ADRENAL GLANDS: Unremarkable. KIDNEYS, URETERS, AND BLADDER: Bladder is decompressed. STOMACH AND BOWEL: Small hiatal hernia. Little change from 2016. The sigmoid and rectum are decompressed which somewhat limits evaluation. Probably just under distention here. Less likely possibility includes mild colitis. Please correlate clinically. APPENDIX: Normal appendix is again present in the right lower quadrant. PERITONEUM: No free fluid. No free air. LYMPH NODES: No lymphadenopathy is evident. VASCULATURE: Mild atherosclerotic calcification of the abdominal aorta and branches. BONES: There are moderate degenerative spine changes. MISCELLANEOUS: The study is slightly limited by motion artifact. Multiple small calcifications are present in both ovaries which may represent dermoid cysts. Small fat containing periumbilical hernia. IMPRESSION: 1. The study is slightly limited by motion artifact. 2. No definite acute pathology identified in the abdomen or pelvis. 3. Probably just decompressed sigmoid and rectum. Less likely possibility includes a mild colitis. Please correlate clinically. DW pt findings and plan of care. Pt tolerating Po in ER and eager to go home. Scribe Attestation: Documented by Shirley Luke acting as a scribe for Niyah Qureshi MD Provider Scribe Attestation: All medical record entries made by the Scribe were at my direction and personally dictated by me. I have reviewed the chart and agree that the record accurately reflects my personal performance of the history, physical exam, medical decision making, and the department course for this patient. I have also personally directed, reviewed, and agree with the discharge instructions and disposition. Disposition - Clinical Impression Clinical Impression: Abdominal pain, Cocaine abuse - Disposition Referrals: Jerman Canada MD [Staff Provider] - 03/22/18 ([address] [facility] [place] [facility] [place]) Disposition: Routine/Home Disposition Time: 22:45 Condition: IMPROVED Additional Instructions: BLANDITO COMIDO Y DONNY MUCHOS SUEROS Y DESCANSE NO [place] DROGAS Prescriptions: Omeprazole Magnesium [Prilosec Otc] 20 mg PO DAILY #30 tcp Instructions: Cocaine Use Disorder, Acute Abdomen (Belly Pain), Adult (DC) Print Language: SAMOAN
[2018-03-21 19:33] LABS: BASO # 0.1 K/uL (0.0-0.2); BASO % 0.6 % (0.0-2.0); EOS # 0.1 K/uL (0.0-0.7); EOS % 0.7 % (0.0-4.0); HEMOGLOBIN 13.7 g/dL (12.0-16.0); LYMPH # 2.9 K/uL (1.0-4.3); LYMPH % 23.9 % (20.0-40.0); MEAN CELL VOLUME 87.5 fl (81.0-99.0); MEAN CORPUSCULAR HEMOGLOBIN 29.2 pg (27.0-31.0); MEAN CORPUSCULAR HGB CONC 33.4 g/dL (33.0-37.0); MEAN PLATELET VOLUME 7.8 fl (7.2-11.7); MONO # 0.8 K/uL (0.0-0.8); MONO % 6.9 % (0.0-10.0); NEUT # 8.2 K/uL (1.8-7.0); NEUT % 67.9 % (50.0-75.0); RBC 4.69 Mil/uL (3.80-5.20); RED CELL DISTRIBUTION WIDTH 14.8 % (11.5-14.5); WHITE BLOOD COUNT 12.1 K/uL (4.8-10.8)
[2018-03-21 19:37] LABS: SQUAMOUS EPITHIAL 6 /hpf (0-5); URINE AMORPHOUS SEDIMENT RARE /ul (<OCC); URINE BACTERIA RARE (<OCC); URINE BILIRUBIN NEGATIVE (NEGATIVE); URINE BLOOD SMALL (NEGATIVE); URINE CLARITY SLIGHTY-CLOUDY (Clear); URINE COLOR YELLOW (YELLOW); URINE GLUCOSE (UA) NEG (NEGATIVE); URINE LEUKOCYTE ESTERASE NEG Leu/uL (Negative); URINE PROTEIN NEGATIVE (NEGATIVE); URINE UROBILINOGEN 0.2-1.0 mg/dL (0.2-1.0)
[2018-03-21 19:38] LABS: INR 1.1; PROTHROMBIN TIME 12.3 Seconds (9.8-13.1)
[2018-03-21 19:40] LABS: PARTIAL THROMBOPLASTIN TIME 29.5 Seconds (25.6-37.1)
[2018-03-21 19:42] LABS: ALBUMIN 3.8 g/dL (3.5-5.0); ALT/SGPT 23 U/L (9-52); AST/SGOT 28 U/L (14-36); BLOOD UREA NITROGEN 16 mg/dl (7-17); CALCIUM 9.1 mg/dL (8.4-10.2); GFR NON-AFRICAN AMERICAN > 60; LIPASE 105 U/L (23-300)
[2018-03-21] MEDS ORDERED: Iohexol 240 (50 ml) PO STA (19:42)
[2018-03-21 19:51] LABS: BARBITURATES, UR NEGATIVE (NEGATIVE); BENZODIAZEPINES, UR NEGATIVE (NEGATIVE); OPIATES, UR NEGATIVE (NEGATIVE); PHENCYCLIDINE, UR NEGATIVE (NEGATIVE)
[2018-03-21] MEDS ORDERED: Sodium Chloride 0.9% 50 ML IV ONE (21:50)
[2018-03-21] MEDS ORDERED: Iohexol 300 100 ML IJ ONE (21:50)
[2018-03-22 00:12] VITALS: BP 144/67; PULSE 70; RESP 16; TEMP 98.2
--- NOTE | 2018-03-22 09:17 | CT ---
Date of service: 03/21/2018 PROCEDURE: CT Abdomen and Pelvis with contrast HISTORY: abdominal pain leukocytosis COMPARISON: 05/23/2015 TECHNIQUE: Contrast dose: 95 cc Omnipaque 300 Radiation dose: Total exam DLP = 743.74 mGy-cm. This CT exam was performed using one or more of the following dose reduction techniques: Automated exposure control, adjustment of the mA and/or kV according to patient size, and/or use of iterative reconstruction technique. FINDINGS: The examination is limited due to extensive patient respiratory motion artifact. LOWER THORAX: Unremarkable. LIVER: Normal size, contour and attenuation. There is an ovoid nonspecific low-attenuation lesion in the right lobe of the liver measuring 0.9 x 2.2 cm. There is no other hepatic mass identified. There is no biliary ductal dilatation. GALLBLADDER AND BILE DUCTS: Unremarkable. PANCREAS: Unremarkable. No gross lesion or ductal dilatation. SPLEEN: Unremarkable. ADRENALS: Unremarkable. No mass. KIDNEYS AND URETERS: There is cortical scar in the upper pole left kidney common nonspecific. 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 A separate ureteral segment drains each of the to collecting systems, fusing proximally to form a single right ureter. No evidence of pyelonephritis. No renal mass or calculus. No hydronephrosis. VASCULATURE: Unremarkable. No aortic aneurysm. There is atherosclerotic calcification of the abdominal aorta. BOWEL: Small hiatal hernia. No bowel obstruction. Mild circumferential mural thickening of the sigmoid colon likely due to muscularis hypertrophy associated with sigmoid diverticulosis. No change from prior examination. No other abnormal bowel loops are identified. APPENDIX: Normal appendix. PERITONEUM: Unremarkable. No free fluid. No free air. LYMPH NODES: Unremarkable. No enlarged lymph nodes. BLADDER: Poorly distended. No gross abnormality. REPRODUCTIVE: There is central low attenuation within the uterus which could represent retained fluid or blood products, such as hydro call post or could represent thickened endometrium. Please correlate with transvaginal pelvic ultrasound examination. There are punctate calcifications noted in both ovaries common nonspecific. No probable clinical significance. BONES: No acute fracture. Grade 1 anterolisthesis at L4-5 without spondylolysis. There is moderate to severe central spinal canal stenosis at L4-5 as a result of this listhesis. OTHER FINDINGS: None. IMPRESSION: No acute inflammatory abnormality. No bowel obstruction. Central low attenuation within the uterus. Recommend further evaluation with transvaginal pelvic ultrasound examination. Nonspecific cortical scarring upper pole left kidney. Nonspecific low-attenuation 2.2 cm lesion in right hepatic lobe. Consider correlation with hepatic ultrasound examination. Small hiatal hernia. The preliminary findings for this examination were reported by [facility] at 11:07 p.m. on 03/21/2018. There is discordance of this report with the preliminary findings. Central low attenuation within the uterus was not noted in the preliminary report of this examination. Evaluation with transvaginal pelvic ultrasound examination is advised. No other significant discrepancy.
--- NOTE | 2018-03-22 10:09 | RAD ---
Date of service: 03/21/2018 PROCEDURE: Radiographs of the chest and abdomen (obstructive series) HISTORY: abd pain r/o sbo COMPARISON: Chest radiograph dated 02/14/2017; CT scan of the abdomen and pelvis dated 05/23/2015. TECHNIQUE: AP radiograph of the chest, with upright and supine radiographs of the abdomen. FINDINGS: CHEST: Lungs: Clear. Cardiovascular: Aortic atherosclerotic calcifications. Cardiomediastinal silhouette stably enlarged. Pleura: No pleural fluid. No pneumothorax. Other findings: None. ABDOMEN AND PELVIS: Bowel: Unremarkable bowel gas pattern. No evidence of mechanical obstruction. Free air: None. Bones: Unchanged. Other findings: None. IMPRESSION: Unremarkable radiographs of chest and abdomen. No evidence of mechanical bowel obstruction.
[2018-03-22 15:06] VITALS: O2SAT 98
--- NOTE | 2018-03-22 19:47 | CARD ---
APPROVED REPORT Date of service: 03/21/2018 EKG Measurement Heart [id number] <Conclusion> Normal sinus rhythm Normal ECG
== END 2018-03-21 23:50 | disposition home or self-care (01) ==
LOC: H.ER 18:05
DX: R10.32 Left lower quadrant pain (principal); F14.10 Cocaine abuse, uncomplicated; K44.9 Diaphragmatic hernia without obstruction or gangrene; I10 Essential (primary) hypertension; Z86.73 Personal history of transient ischemic attack (TIA), and cerebral infarction without residual deficits; M06.9 Rheumatoid arthritis, unspecified; I70.0 Atherosclerosis of aorta
CPT/HCPCS: 74022; 74177; 80053; 81003; 83605; 83690; 84484; 85025; 85610; 85730; 93005; 99285; G0480; Q9966; Q9967